=== PATIENT | female | born 1960 ===

== ENCOUNTER 2017-01-01 07:44 | Day surgery (SDC) | payer MEDICAID ==
[2017-01-01] MEDS ORDERED: Lactated Ringer's 500 ML IV ONE (08:17)
[2017-01-01] MEDS ORDERED: Propofol 10 mg/ml Inj (20 ML) ONE (09:24)
[2017-01-01 10:05] VITALS: TEMP 97.1
[2017-01-01 10:25] VITALS: BP 100/60; PULSE 67; RESP 14; O2SAT 99
== END 2017-01-01 10:27 | disposition home or self-care (01) ==
LOC: H.ENDO 07:44
PROVIDERS: ATTEND Internal Medicine Gastroenterology
DX: Z12.11 Encounter for screening for malignant neoplasm of colon (principal); Z85.038 Personal history of other malignant neoplasm of large intestine; K29.50 Unspecified chronic gastritis without bleeding; R12 Heartburn; K64.8 Other hemorrhoids